=== PATIENT | male | born 1940 | race Hispanic/Latino ===

== ENCOUNTER 2018-01-21 14:31 | Outpatient (CLI) | payer BC ==
--- NOTE | 2018-01-21 16:41 | XRay Report ---
XRAY RIGHT KNEE 4 THREE VIEWS: 01/21/18 CLINICAL: Right knee pain. FINDINGS: Moderate osteoarthritis of the medial joint space with narrowing of the joint space and moderate size osteophytes. The lateral joint space is normal. Small patellofemoral osteophytes. Large quadriceps and patellar insertion enthesophytes. A large prominent tibial tubercle. No joint effusion.Vascular calcifications. 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 Quadriceps tendon insertion enthesopathy and patellar tendon insertion enthesopathy.
== END 2018-01-21 14:32 | disposition home or self-care (01) ==
LOC: SPVIMAG 14:31
PROVIDERS: ATTEND Orthopaedic Surgery Sports Medicine
DX: M17.11 Unilateral primary osteoarthritis, right knee (principal); M76.891 Other specified enthesopathies of right lower limb, excluding foot